=== PATIENT | male | born 1960 | race Caucasian/White ===

== ENCOUNTER → 2016-12-15 | Outpatient (CLI) | payer OTHER ==
--- NOTE | 2016-12-15 17:32 | RADIOLOGY REPORT PS360 ---
KNEE-3 VIEWS-RT HISTORY: RT KNEE PAIN medial knee pain for 3 months. No trauma Patient Age: 56 years: Male Ordering Physician: Priyank To MD TECHNIQUE: 3 views right knee COMPARISON : No previous studies FINDINGS Definite, generous joint effusion suprapatella bursa evident.. Bones well mineralized. Both medial and lateral compartment fairly well maintained on this nonweightbearing film Spurring at insertion of the quadriceps at superior patella noted but not current significance Flabella seen posteriorly. There is also additional small calcification posteriorly on lateral view. Possibly additional synovial calcification. Nonspecific. I see no osseous defect to suggest this as loose body IMPRESSION: Definite Joint effusion suprapatella bursa . Joint space and osseous structures intact. Minor observations in text
== END ==
LOC: RAD 15:32
DX: M25.561 Pain in right knee (principal)